=== PATIENT | female | born 1985 | race Caucasian/White ===

== ENCOUNTER 2021-12-30 12:58 | Outpatient (CLI) | payer OTHER | END 2021-12-30 12:59 | disposition home or self-care (01) | LOC: CSHMAMMO 12:58 | PROVIDERS: ATTEND Student in an Organized Health Care Education/Training Program | DX: Z12.31 Encounter for screening mammogram for malignant neoplasm of breast (principal); Z80.3 Family history of malignant neoplasm of breast | CPT/HCPCS: 77063; 77067 ==

== ENCOUNTER 2023-06-19 14:42 | Emergency (ER) | payer OTHER ==
[2023-06-19 15:18] LABS: Bilirubin Neg (Negative); Blood, Urine 250 (Negative); Clarity Slightly Cloudy (Clear); Glucose, Urine (Dipstick) Normal (Negative); Ketone, Urine Negative (Negative); Leukocyte 100 (Negative); Nitrite Positive (Negative); Protein, Urine (Dipstick) 100 mg/dl (Neg-Trace); Urobilinogen Normal mg/dL (Less than 2)
[2023-06-19 15:20] LABS: Pregnancy Test - Urine (BHCG) POSITIVE (Negative)
[2023-06-19 15:21] LABS: Pregu Control Background? CLEAR/WHITE (CLR/WHITE); Pregu Control Bar Appear? YES (CONTROL BAR)
[2023-06-19 15:23] LABS: #Basophils 0.1 10x3/uL (0.0-0.2); #Eosinphils 0.3 10x3/uL (0.0-0.5); #Monocytes 1.3 10x3/uL (0.0-1.1); #Neutrophils 11.2 10x3/uL (1.5-8.4); %Basophils 0.7 % (0.0-2.0); %Eosinophils 1.6 % (0.0-6.0); %Lymphocytes 15.9 % (18.0-47.0); %Monocytes 8.2 % (0.0-10.0); %Neutrophils 73.2 % (40.0-75.0); Hematocrit 38.2 % (34.9-44.5); Mean Corpuscular Hemoglobin 30.5 pg (27.0-33.0); Mean Corpuscular Volume 89.7 fl (81.6-98.3); Mean Platelet Volume 9.9 fl (7.4-10.4); Platelet Count 293 10x3/uL (150-450); RBC Distribution Width 13.6 % (11.5-14.5); Red Blood Cell (RBC) Count 4.26 10x6/uL (3.90-5.03); White Blood Cell (WBC) Count 15.3 10x3/uL (3.5-10.5)
[2023-06-19 15:31] LABS: CAUTI Indications for Culture Pregnancy; WBC/HPF 21-50 HPF (0-3)
[2023-06-19 15:33] LABS: Bacteria/HPF 3+ HPF (None Seen); RBC/HPF Greater than 50 HPF (0-3)
[2023-06-19 15:36] LABS: Urine Culture Reflex Yes Yes
[2023-06-19] MEDS ORDERED: Nitrofurantoin Macrocrystal 50 MG CAP PO SCH (16:30)
== END 2023-06-19 19:05 | disposition home or self-care (01) ==
LOC: CSHERS 14:42
DX: O23.41 Unspecified infection of urinary tract in pregnancy, first trimester (principal); Z3A.01 Less than 8 weeks gestation of pregnancy
CPT/HCPCS: 36415; 76856; 81001; 81025; 84702; 85025; 87077; 87086; 87186